=== PATIENT | male | born 1980 | race Caucasian/White ===

== ENCOUNTER 2023-12-01 06:38 | Emergency (ER) | payer OTHER ==
[2023-12-01 07:02] VITALS: BP 116/67; PULSE 68; RESP 13; TEMP 97.7; BMI 31.4
[2023-12-01] MEDS ORDERED: KETOROLAC TROMETHAMINE 30 MG/1 ML VIAL ONE (07:51)
[2023-12-01] MEDS: KETOROLAC TROMETHAMINE 30 MG/1 ML VIAL IM ONE (07:53)
== END 2023-12-01 08:20 | disposition home or self-care (01) ==
LOC: JER 06:38
PROC: 3E0133Z Introduction of Anti-inflammatory into Subcutaneous Tissue, Percutaneous Approach (ICD-10-PCS; principal; 2023-12-01)
DX: S46.911A Strain of unspecified muscle, fascia and tendon at shoulder and upper arm level, right arm, initial encounter (principal); M54.40 Lumbago with sciatica, unspecified side; W01.0XXA Fall on same level from slipping, tripping and stumbling without subsequent striking against object, initial encounter
CPT/HCPCS: 73030-TC-RT-FY; 73060-TC-RT-FY; 99284-25